=== PATIENT | male | born 1970 | race Caucasian/White ===

== ENCOUNTER 2017-09-19 04:02 | Emergency (ER) | payer OTHER ==
[2017-09-19] MEDS ORDERED: KETOROLAC 30 MG/1 ML SDV IVP ONE (04:12)
[2017-09-19] MEDS ORDERED: NS 1,000 ML IV ONE ×2 (04:12)
[2017-09-19] MEDS ORDERED: ONDANSETRON 4 MG/2 ML VIAL IVP ONE (04:12)
[2017-09-19 05:26] LABS: PLATELET COUNT 193 10^3/uL (150-400)
[2017-09-19] MEDS ORDERED: HYDROmorphONE/DILAUDID 1 MG/ML INJ IVP ONE (05:41)
--- NOTE | 2017-09-19 05:41 | EDPHY ---
H & P Stated Complaint: POS KIDNEY STONE/R FLANK PAIN/URINARY RETENTION Source: Patient Exam Limitations: No limitations - Personal History Current Tetanus Diphtheria and Acellular Pertussis (TDAP): Yes - Medical/Surgical History Hx Asthma: No Hx Chronic Respiratory Disease: No Hx Diabetes: No Hx Cardiac Disease: No Hx Renal Disease: No Hx Cirrhosis: No Hx Alcoholism: No Hx HIV/AIDS: No Hx Splenectomy or Spleen Trauma: No Other PMH: KIDNEY STONES - Social History Smoking Status: Never smoked Time Seen by Provider: 09/19/17 04:12 HPI/ROS: HPI The patient presents with right-sided flank pain that began 6 hr prior to presentation. It came on suddenly. It is dull in nature and intermittent. He rates at a severe. It is associated with several episodes of nonbloody nonbilious emesis. He tried taking ibuprofen and hydromorphone, however he is had vomiting. He has a history of kidney stones, last had renal colic in May of 2017. He had an initial episode of renal colic 6 years ago and was seen by a urologist, he is not sure who. REVIEW OF SYSTEMS Constitutional: No fever, no chills. Eyes: No discharge. ENT: No sore throat. Cardiovascular: No chest pain, no palpitations. Respiratory: No cough, no shortness of breath. Gastrointestinal: No abdominal pain, no vomiting. Genitourinary: No hematuria. Musculoskeletal: No back pain. Skin: No rashes. Neurological: No headache. PMHx: History of renal colic Soc Hx: Recent travel to [place] PHYSICAL General Appearance: Alert, no distress Eyes: Pupils equal and round no pallor or injection ENT, Mouth: Mucous membranes moist Respiratory: There are no retractions, lungs are clear to auscultation Cardiovascular: Regular rate and rhythm Gastrointestinal: Abdomen is soft and non-tender, no masses, bowel sounds normal; right flank tenderness Neurological: A&O, moves all extremities Skin: Warm and dry, no rashes Musculoskeletal: Neck is supple non tender Extremities: symmetrical, full range of motion Psychiatric: Patient is oriented X 3, there is no agitation (KellyiAixa) Constitutional: Initial Vital Signs Temperature (C) 36.3 C 09/19/17 04:08 Heart Rate 54 L 09/19/17 04:08 Respiratory Rate 16 09/19/17 04:08 Blood Pressure 134/80 H 02/24/18 04:08 O2 Sat (%) 96 09/19/17 04:08 O2 Delivery Mode Room Air Allergies/Adverse Reactions: No Known Allergies Allergy (Verified 09/19/17 04:06) Home Medications: Medication Instructions Recorded Hydrocodone/APAP 5/325 [[place] 1 - 2 tab PO Q6H PRN #15 tab 09/19/17 5/325 (*)] Ondansetron Odt [Zofran Odt 4 mg 4 mg PO Q4 PRN #10 tab 09/19/17 (*)] Tamsulosin HCl [Flomax 0.4 MG (*)] 0.4 mg PO DAILY #10 cap 09/19/17 Medical Decision Making Differential Diagnosis: This is a 47-year-old healthy male history of kidney stones who presents with several hours of right-sided flank pain and urgency. On exam, he is generally well-appearing, pain has been intermittent. He has had vomiting. Distal diagnosis includes renal colic, pyelonephritis, doubt AAA given young age. In the emergency department, patient had IV fluids, Toradol, Dilaudid, Zofran with complete resolution of his symptoms. Labs were checked and were unremarkable. UA was pending at change of shift. I suspect he is suffering from renal colic based on his symptomatology. On reassessment he is feeling much better with no pain after receive Dilaudid. Plan to await UA, if there is signs of infection I would treat him with antibiotics. The case will be signed out to Dr. Mattson. (Aixa Forman) Other Provider: Dr. Forman did ask me to check the results of the patient's urine dipstick test. It demonstrated only blood without evidence of any infection. It was leukocyte and nitrate negative. The patient will be discharged per her instructions. (Joe Mattson) - Data Points Laboratory Results: Laboratory Results 09/19/17 05:10 09/19/17 05:10 Medications Given: Discontinued Medications Hydrocodone Bitart/Acetaminophen ([place] 5/325mg Prepack#6) 1 btl TAKEHOME EDNOW ONE Stop: 09/19/17 07:15 Last Admin: 09/19/17 08:46 Dose: 1 btl Hydromorphone HCl (Dilaudid) 0.5 mg IVP EDNOW ONE Stop: 09/19/17 05:42 Last Admin: 09/19/17 05:49 Dose: 0.5 mg Sodium Chloride (Ns) 1,000 mls @ 0 mls/hr IV ONCE ONE; Wide Open PRN Reason: Protocol Stop: 09/19/17 04:13 Last Admin: 09/19/17 04:44 Dose: 1,000 mls Sodium Chloride (Ns) 1,000 mls @ 0 mls/hr IV ONCE ONE; Wide Open PRN Reason: Protocol Stop: 09/19/17 04:13 Last Admin: 09/19/17 04:44 Dose: 1,000 mls Ketorolac Tromethamine (Toradol) 15 mg IVP EDNOW ONE Stop: 09/19/17 04:13 Last Admin: 09/19/17 04:44 Dose: 15 mg Ondansetron HCl (Zofran) 4 mg IVP EDNOW ONE Stop: 09/19/17 04:13 Last Admin: 09/19/17 04:44 Dose: 4 mg Ondansetron HCl (Zofran Odt 4 Mg Prepack#2) 1 btl TAKEHOME EDNOW ONE Stop: 09/19/17 07:15 Last Admin: 09/19/17 08:45 Dose: 1 btl Departure - Departure Disposition: Home, Routine, Self-Care Clinical Impression: Renal colic on right side Condition: Good Instructions: Renal Colic (ED), How to Strain Your Urine (ED) Additional Instructions: Please make sure to drink plenty of water. You should return to the emergency department if your worse in any way. Take ibuprofen 600 mg every 6 hr for pain. If the pain is more severe, you can take the prescription. Take the prescription medications as prescribed. I have given you the information for the urologist whom you can follow up with within the next 1 week if your symptoms continue. Your urine dipstick test demonstrates no evidence of an infection Referrals: Gypsy Horn MD [Medical Doctor] - As per Instructions Prescriptions: Hydrocodone/APAP 5/325 [[place] 5/325 (*)] 1 - 2 tab PO Q6H PRN #15 tab PRN Reason: Pain, Breakthrough Ondansetron Odt [Zofran Odt 4 mg (*)] 4 mg PO Q4 PRN #10 tab PRN Reason: Nausea/Vomiting, Can'T Take Po Tamsulosin HCl [Flomax 0.4 MG (*)] 0.4 mg PO DAILY #10 cap
[2017-09-19] MEDS ORDERED: HYDROmorphONE/DILAUDID 2 MG/ML INJ ONE (05:44)
[2017-09-19] MEDS ORDERED: HYDROCOD/APAP 5/325 PREPACK#6 BTL TAKEHOME ONE (07:14)
[2017-09-19] MEDS ORDERED: ONDANSETRON 4MG PREPACK#2 BTL TAKEHOME ONE (07:14)
[2017-09-19 08:52] VITALS: BP 127/76; PULSE 65; RESP 19; TEMP 97.9; O2SAT 99
== END 2017-09-19 08:50 | disposition home or self-care (01) ==
DX: N23 Unspecified renal colic (principal); E86.9 Volume depletion, unspecified
CPT/HCPCS: 96374; J1170; J1885; J2405

== ENCOUNTER 2017-09-21 21:00 | Observation (INO) | payer OTHER ==
[2017-09-21] MEDS ORDERED: NS 1,000 ML IV ONE ×2 (22:03→22:13)
--- NOTE | 2017-09-21 22:03 | EDPHY ---
H & P Stated Complaint: Dx with kidney stone on Thursday now having chills and sweats [id number] HPI/ROS: HPI CHIEF COMPLAINT: Chills, rigors, diaphoresis, right-sided abdominal pain HISTORY OF PRESENT ILLNESS: Patient very pleasant 39-year-old male he is otherwise healthy does have remote history of kidney stones, was recently seen here on Thursday with right-sided flank pain and had a urinalysis that showed blood was diagnosed with a kidney stone. Was due to follow up with Urology but could not get in today. He presents to the emergency room with ongoing right flank pain as well as chills, rigors and diaphoresis. He has had nausea. He has been taking Zofran and Vicodin. He is afebrile here in the emergency room however he did take Vicodin prior to arrival. His main complaint is chills, rigors, diaphoresis. He is not diaphoretic here. Pain is 3/10 right flank. Past Medical History: history kidney stones. Past Surgical History: Denies recent surgery Social History: Denies drugs alcohol tobacco products. He did have recent travel to [place] Family History: Denies significant family history ROS REVIEW OF SYSTEMS: A comprehensive 10 point review of systems is otherwise negative aside from elements mentioned in the history of present illness. Exam Constitutional otherwise appears well triage nursing summary reviewed, vital signs reviewed, awake/alert. Vital signs noted at triage to be hypotensive 98 systolic blood pressure. Eyes normal conjunctivae and sclera, EOMI, PERRLA. HENT normal inspection, atraumatic, moist mucus membranes, no epistaxis, neck supple/ no meningismus, no raccoon eyes. Respiratory clear to auscultation bilaterally, normal breath sounds, no respiratory distress, no wheezing. Cardiovascular rate normal, regular rhythm, no murmur, no edema, distal pulses normal. Gastrointestinal mild tender palpation right lower quadrant right flank, no rebound, no guarding, normal bowel sounds, no distension, no pulsatile mass. Genitourinary mild right flank pain Musculoskeletal no midline vertebral tenderness, full range of motion, no calf swelling, no tenderness of extremities, no meningismus, good pulses, neurovascularly intact. Skin pink, warm, & dry, no rash, skin atraumatic. Neurologic awake, alert and oriented x 3, AAOx3, moves all 4 extremities equally, motor intact, sensory intact, CN II-XII intact, normal cerebellar, normal vision, normal speech. Psychiatric normal mood/affect. Heme/Lymph/Immune no lymphadenopathy. Differential diagnosis includes but is not limited to and in no particular order : Bacteremia,, sepsis Bowel obstruction, appendicitis, gallbladder disease, diverticulitis, colitis, enteritis, perforated viscus, gastritis, GERD, esophagitis, urinary tract infection, pyelonephritis, kidney stones Medical Decision Making: Plan for this patient IV establishment 2 L normal saline IV fluid bolus, check basic blood work, CT scan abdomen pelvis without contrast the right flank, check lactic acid, obtain blood cultures, re-evaluate. Re-evaluation: CT scan abdomen pelvis without contrast shows a right-sided 6 mm proximal UVJ stone with obstruction. 1209: On re-examination at this time the patient is resting comfortably he was able to get up and provide us urine sample. Blood cultures have been pulled his lactic acid is less than 2. He has remained afebrile here in emergency room. His initial blood pressure was slightly low however it has improved to the 150 systolic. Given his creatinine of 2.4 an obstructing right UPJ stone of 6 mm I do feel the patient needs to be admitted the hospital. The question whether he has an infection is still pending at this time. I have ordered him 1 g of Rocephin. I will additionally consult Urology. The patient agrees for admission. He has remained hemodynamically stable here. Afebrile here. 0148: Urinalysis reviewed shows no evidence of infection. However given the patient's complaint of chills, rigors, and feeling nauseous earlier I have sent a urine culture and given him a g of Rocephin. The patient remains hemodynamically stable. The patient be admitted to the hospitalist service for an obstructing right-sided stone. Creatinine 2.4. Dilaudid for pain control. No Toradol due to renal insufficiency. Additionally will consult Urology. 0207: Spoke with Dr. Haynes, Will plan on seeing patient. Agrees with workup at this time. NPO. Source: Patient - Personal History Current Tetanus/Diphtheria Vaccine: Yes Current Tetanus Diphtheria and Acellular Pertussis (TDAP): Yes - Medical/Surgical History Hx Asthma: No Hx Chronic Respiratory Disease: No Hx Diabetes: No Hx Cardiac Disease: No Hx Renal Disease: No Hx Cirrhosis: No Hx Alcoholism: No Hx HIV/AIDS: No Hx Splenectomy or Spleen Trauma: No Other PMH: KIDNEY STONES - Social History Smoking Status: Never smoked Constitutional: Initial Vital Signs Temperature (C) 36.3 C 09/21/17 21:03 Heart Rate 58 L 09/21/17 21:03 Respiratory Rate 16 09/21/17 21:03 Blood Pressure 96/58 L 09/21/17 21:03 O2 Sat (%) 95 09/21/17 21:03 O2 Delivery Mode Room Air Allergies/Adverse Reactions: No Known Allergies Allergy (Verified 09/21/17 21:06) Home Medications: Medication Instructions Recorded Hydrocodone/APAP 5/325 [[place] 1 - 2 tab PO Q6H PRN #15 tab 09/19/17 5/325 (*)] Ondansetron Odt [Zofran Odt 4 mg 4 mg PO Q4 PRN #10 tab 09/19/17 (*)] Tamsulosin HCl [Flomax 0.4 MG (*)] 0.4 mg PO DAILY #10 cap 09/19/17 Medical Decision Making - Diagnostics Imaging Results: Imaging Impressions Abdomen/Pelvis CT 09/21/17 22:12 Impression: 1. 6 mm proximal right ureteral calculus with associated moderate hydronephrosis. Additional calculus lower pole collecting system, right kidney. Results called to Dr. Jaswinder Jones at 11:00 PM. Attention: This CT examination is specifically designed to evaluate patients who are clinically suspected of having acute obstructive uropathy. This examination does not use radiographic contrast, and as such, provides only a limited evaluation of the abdomen, pelvis and retroperitoneum. If there is further clinical suspicion for pathological conditions other than obstructive uropathy, a complete CT evaluation of the abdomen and pelvis utilizing intravenous, oral, and rectal contrast should be considered. - Data Points Laboratory Results: Laboratory Results 09/21/17 22:23 09/21/17 22:23 09/22/17 09/21/17 09/21/17 00:00 22:23 22:23 WBC RBC Hgb Hct MCV MCH MCHC RDW Plt Count MPV Neut % (Auto) Lymph % (Auto) [place] % (Auto) Eos % (Auto) Baso % (Auto) Nucleat RBC Rel Count Absolute Neuts (auto) Absolute Lymphs (auto) Absolute Monos (auto) Absolute Eos (auto) Absolute Basos (auto) Absolute Nucleated RBC Immature Gran % Immature Gran # PT 14.3 SEC SEC (12.0-15.0) INR 1.09 (0.83-1.16) APTT 25.8 SEC SEC (23.0-38.0) VBG Lactic Acid Sodium 136 mEq/L mEq/L (135-145) Potassium 4.6 mEq/L mEq/L (3.5-5.2) Chloride 101 mEq/L mEq/L (97-110) Carbon Dioxide 27 mEq/l mEq/l (22-31) Anion Gap 8 mEq/L mEq/L (8-16) BUN 21 mg/dL mg/dL (7-23) Creatinine 2.4 mg/dL H D mg/dL (0.7-1.3) Estimated GFR 29 Glucose 121 mg/dL H mg/dL (70-100) Calcium 9.4 mg/dL mg/dL (8.5-10.4) Urine Color YELLOW Urine Appearance CLEAR Urine pH 6.0 (5.0-7.5) Ur Specific [place] 1.010 (1.002-1.030) Urine Protein NEGATIVE (NEGATIVE) Urine Ketones TRACE H (NEGATIVE) Urine Blood NEGATIVE (NEGATIVE) Urine Nitrate NEGATIVE (NEGATIVE) Urine Bilirubin NEGATIVE (NEGATIVE) Urine Urobilinogen NEGATIVE EU EU (0.2-1.0) Ur Leukocyte Esterase NEGATIVE (NEGATIVE) Urine Glucose NEGATIVE (NEGATIVE) 09/21/17 09/21/17 22:23 22:23 WBC 14.38 10^3/uL H 10^3/uL (3.80-9.50) RBC 5.05 10^6/uL 10^6/uL (4.40-6.38) Hgb 14.3 g/dL g/dL (13.7-17.5) Hct 42.5 % % (40.0-51.0) MCV 84.2 fL fL (81.5-99.8) MCH 28.3 pg pg (27.9-34.1) MCHC 33.6 g/dL g/dL (32.4-36.7) RDW 12.0 % % (11.5-15.2) Plt Count 181 10^3/uL 10^3/uL (150-400) MPV 8.7 fL fL (8.7-11.7) Neut % (Auto) 84.0 % H % (39.3-74.2) Lymph % (Auto) 7.4 % L % (15.0-45.0) [place] % (Auto) 7.6 % % (4.5-13.0) Eos % (Auto) 0.4 % L % (0.6-7.6) Baso % (Auto) 0.2 % L % (0.3-1.7) Nucleat RBC Rel Count 0.0 % % (0.0-0.2) Absolute Neuts (auto) 12.07 10^3/uL H 10^3/uL (1.70-6.50) Absolute Lymphs (auto) 1.06 10^3/uL 10^3/uL (1.00-3.00) Absolute Monos (auto) 1.10 10^3/uL H 10^3/uL (0.30-0.80) Absolute Eos (auto) 0.06 10^3/uL 10^3/uL (0.03-0.40) Absolute Basos (auto) 0.03 10^3/uL 10^3/uL (0.02-0.10) Absolute Nucleated RBC 0.00 10^3/uL 10^3/uL (0-0.01) Immature Gran % 0.4 % % (0.0-1.1) Immature Gran # 0.06 10^3/uL 10^3/uL (0.00-0.10) PT INR APTT VBG Lactic Acid 1.2 mmol/L mmol/L (0.7-2.1) Sodium Potassium Chloride Carbon Dioxide Anion Gap BUN Creatinine Estimated GFR Glucose Calcium Urine Color Urine Appearance Urine pH Ur Specific [place] Urine Protein Urine Ketones Urine Blood Urine Nitrate Urine Bilirubin Urine Urobilinogen Ur Leukocyte Esterase Urine Glucose Medications Given: Discontinued Medications Hydromorphone HCl (Dilaudid) 0.5 mg IVP EDNOW ONE Stop: 09/22/17 01:33 Last Admin: 09/22/17 01:37 Dose: 0.5 mg Sodium Chloride (Ns) 1,000 mls @ 0 mls/hr IV EDNOW ONE; Wide Open PRN Reason: Protocol Stop: 09/21/17 22:04 Last Admin: 09/21/17 22:20 Dose: 1,000 mls Sodium Chloride (Ns) 1,000 mls @ 0 mls/hr IV ONCE ONE PRN Reason: Wide Open Stop: 09/21/17 22:14 Last Admin: 09/21/17 23:19 Dose: 1,000 mls Ceftriaxone Sodium/Dextrose (Rocephin 1 Gm (Premix)) 50 mls @ 100 mls/hr IV EDNOW ONE PRN Reason: Protocol Stop: 09/22/17 00:37 Last Admin: 09/22/17 01:12 Dose: 50 mls Departure - Departure Disposition: [facility] Acute Clinical Impression: Urinary tract obstruction by kidney stone Condition: Fair
[2017-09-21 22:37] LABS: PLATELET COUNT 181 10^3/uL (150-400)
[2017-09-21 22:43] LABS: INR 1.09 (0.83-1.16); PROTIME(PATIENT) 14.3 SEC (12.0-15.0)
[2017-09-22] MEDS ORDERED: HYDROmorphONE/DILAUDID 1 MG/ML INJ ONE (01:19)
[2017-09-22] MEDS ORDERED: HYDROmorphONE/DILAUDID 1 MG/ML INJ IVP ONE (01:32)
[2017-09-22] MEDS ORDERED: HYDROCODONE/APAP 5/325 TAB PO PRN ×2 (02:03→16:31)
[2017-09-22] MEDS ORDERED: HYDROmorphONE/DILAUDID 1 MG/ML INJ IVP PRN (02:03)
[2017-09-22] MEDS ORDERED: ACETAMINOPHEN 325 MG TAB PO PRN (02:03)
[2017-09-22] MEDS ORDERED: LORazepam 2 MG/ML INJ IVP PRN (02:03)
[2017-09-22] MEDS ORDERED: ONDANSETRON 4 MG/2 ML VIAL IVP PRN ×2 (02:03→16:31)
[2017-09-22] MEDS ORDERED: PROMETHAZINE HCL 25 MG/ML INJ IVP PRN ×2 (02:03→16:31)
[2017-09-22] MEDS: HYDROmorphONE/DILAUDID 2 MG/ML INJ IVP PRN ×3 (03:15→12:07)
--- NOTE | 2017-09-22 03:37 | GHP ---
[f rep st] HISTORY AND PHYSICAL DATE OF ADMISSION: 09/22/2017 SOURCE: Patient provides history, appears reliable. EMR was reviewed and case discussed with ED pro vider. CHIEF COMPLAINT: Right abdominal flank pain. HISTORY OF PRESENT ILLNESS: This is a very pleasant 47-year-old gentleman with past medical history significant for kidney stone diagnosed just a few days ago, who presents to the emergency department today returning with complaints of rigors, diaphoresis and worsening abdominal pain with nausea and v omiting. Patient reports he started to have symptoms approximately 3-4 days ago when he developed th e abdominal pain. He has subsequently developed rigors and complaints of chills. He denies any know n fevers. The patient has had several episodes of nausea and vomiting that initial day of symptoms, which have subsequently resolved. He did note a little bit of blood tinging. Denies any melena, hem atochezia. He denies any dysuria or hematuria. He reports his urine has been darker. The patient h as had some constipation at this time. He also received 3 L of IV fluid in the emergency department before he was able to void for sample. The patient underwent CT scan in the ED, which did show a 6 m m obstructing right stone at the UPJ. REVIEW OF SYSTEMS: GENERAL: Patient reports subjective chills, rigors and diaphoresis. SKIN: Sherie ent denies any rashes or sores. ENT: No congestion or sore throat. EYES: Patient does report an ep isode of dizziness with associated bilateral loss of vision during episodes of severe rigors. He den ies any syncope. CV: The patient denies any chest pain or palpitations. RESPIRATORY: Patient with out any shortness of breath or cough. GI: See HPI. : See HPI. NEURO: Patient reports episode o f dizziness x1, now resolved. He has had a low-grade mild headache ongoing in the last several days. Denies any numbness or tingling anywhere. PSYCH: Patient denies any anxiety or depression. The rem ainder of review of systems negative, except as noted above. ALLERGIES: No known drug allergies. HOME MEDICATIONS: Tamsulosin, Zofran ODT, [place]. PAST MEDICAL HISTORY: Significant for kidney stones. PAST SURGICAL HISTORY: Patient denies. FAMILY HISTORY: Negative for kidney stones, renal disease, hypertension, diabetes. SOCIAL HISTORY: Patient is , lives with family. Does not smoke. He does drink approximately 2 times weekly. He also uses rare marijuana, possibly once per month. CODE STATUS: Full. PHYSICAL EXAMINATION: VITAL SIGNS: Upon arrival to the emergency department, blood pressure 96/58, heart rate 58, respiratory rate 16, O2 saturation 95% on room air with temperature 36.3. Current vit als available, blood pressure 122/83, heart rate is 79, respiratory rate 16, O2 saturation is 96% on room air with a temperature of 36.9. GENERAL: No acute distress. The patient appears acutely ill, but nontoxic. He does appear uncomfortable with movement, but he is pleasant and cooperative. HEAD: Normocephalic, atraumatic. EYES: Extraocular muscles grossly intact. Pupils equal, round, decrea sed reactivity to light bilaterally, but symmetric. No scleral icterus or conjunctival injection. E NT: Mucous membranes appear moist. No oropharyngeal erythema or exudates. Dentition is intact. NE CK: Supple. Trachea midline. CV: Regular rate and rhythm. No murmurs, rubs, or gallops appreciat ed. RESPIRATORY: Lungs are clear to auscultation bilaterally. No wheezes, rales, or rhonchi apprec iated. ABDOMEN: Positive bowel sounds. Soft. Patient does complain of some tenderness to palpatio n. No rebound or guarding appreciated. : No suprapubic tenderness to palpation. No Burdick cathet er in place. EXTREMITIES: Patient without any cyanosis, clubbing, or edema. Patient with 2+ pedal pulses. NEURO: Grossly nonfocal. No facial drooping. Cranial nerves 2-12 are intact symmetric karla aterally. Patient is awake, alert, and oriented x4. PSYCH: Thought process, content and all questi ons appear reliable. Patient is cooperative and pleasant. LABORATORY STUDIES: WBC 14.38, H and H is 14.3 and 42.5, MCV of 84.2, platelet count is 181, neutrop hil 84.0%. PT is 14.3, INR 1.09, PTT is 25.8. Lactic acid 1.2. Sodium is 136, potassium 4.6, chloride 101, CO2 27, anion gap 8, BUN 20, creatinine 1, creatinine 2.4 , GFR of 29, glucose 121, calcium 9.4. UA specific gravity of 1.010 with a pH of 6.0, trace ketones, otherwise negative. CT abdomen and pelvis: Image report reviewed myself showing a 6 mm right proximal ureteral calculus with moderate hydronephrosis. Additional calculus lower pole collecting system in the right kidney w ith a 6 mm calculus present in the proximal right UPJ with associated moderate hydronephrosis, perine phric urinary extravasation. ASSESSMENT AND PLAN: Pleasant 47-year-old gentleman with history of kidney stone, who presents to [facility] emergency department with rigors and worsening abdominal pain. 1. Obstructing nephrolithiasis with hydronephrosis. The patient will be made n.p.o. Dr. Dallas bell s consulted from the emergency department and will plan to see the patient this morning for intervent ion. 2. Acute kidney injury, likely related to prerenal and obstructive processes. Patient is status pos t 3 L IV fluid before he was able to make any urine. We will continue with intravenous fluid support on the medical floor. Repeat renal function panel in the morning. 3. Leukocytosis secondary to obstructive process, possible infected stone. However, urinalysis is n egative for any evidence of infectious process. He did receive Rocephin and will await urine culture and blood cultures. 4. Hyperglycemia, mildly elevated and nonfasting state. We will plan to repeat a BMP in the morning as patient will be fasting. 5. Acute pain. The patient will have available IV Dilaudid and Ativan at this time p.r.n. 6. Fluid, electrolyte, nutrition. Patient will receive intravenous fluids. Electrolyte replacement as noted above. Diet is n.p.o. pending Urology evaluation. 7. Prophylaxis. Sequential compression devices, holding anticoagulation, anticipating a procedure. 8. Cor status is full. 9. Disposition. Patient has been admitted to observation status at this time on the medical floor p ending further evaluation and findings from Urology services. Anticipate patient may possibly even d ischarge later in the evening. /[id number]/MODL
[2017-09-22 04:58] LABS: PLATELET COUNT 173 10^3/uL (150-400)
--- NOTE | 2017-09-22 08:20 | SOAPPROG ---
SOAP Progress Note Assessment/Plan: Assessment: Urinary tract obstruction by kidney stone Acute right side and consider intervention if pt does not pass. Options discussed Plan: hydrate, pain control, consider ureteroscopy for stone manipulation 09/22/17 08:18 Subjective: pain Objective: Vital Signs Temp Pulse Resp BP Pulse Ox 36.9 C 71 16 129/76 H 97 09/22/17 07:33 09/22/17 07:33 09/22/17 07:33 09/22/17 07:33 09/22/17 07:33 Laboratory Results 09/22/17 04:10 09/22/17 04:10 09/21/17 09/22/17 09/23/17 05:59 05:59 05:59 Intake Total 2450 Output Total 700 Balance 1750 PT 14.3 SEC (12.0-15.0) 09/21/17 22:23 INR 1.09 (0.83-1.16) 09/21/17 22:23 Physical Exam - Physical Exam General Appearance: alert Respiratory: No respiratory distress Cardiac/Chest: regular rate, rhythm Abdomen: soft Back: CVA tenderness Neuro/Psych: alert, oriented x 3 ICD10 Worksheet Patient Problems: Problems Problem Status Onset Urinary tract obstruction by kidney stone Acute
--- NOTE | 2017-09-22 10:43 | ASMTCMCOM ---
CM Note CM Note Notes: Pt to OR today for kidney stones. Pt , anticipate will d/c when medically stable. No therapies ordered at this time. No CM d/c needs identified at this time. CM available for changes/needs. Date Signed: 09/22/2017 10:42 AM Electronically Signed By:SONAM Daly
--- NOTE | 2017-09-22 11:07 | HOSPPROG ---
Hospitalist Progress Note Assessment/Plan: Patient is a 47-year-old male with a history of a kidney stone diagnosed a few days ago. He returned to the emergency room with complaints of rigors, diaphoresis and worsening abdominal pain with associated nausea and vomiting. It is noted that he has 6 mm obstructing right stone at the UPJ. Today is my 1st encounter with the patient. Chart reviewed. * obstructing nephrolithiasis with associated hydronephrosis -appreciate Urology seeing him * acute kidney injury -repeat labs in a.m. * leukocytosis -UA does not show any infectious etiology, will follow closely -he received a dose of Rocephin in the ER. -repeat labs in a.m. * hyperglycemia -suspect mainly stress induced * pain due to the above -cont pain medications *Plan: start iv fluids, >30 minutes meeting w the patient and his parents, will get repeat labs to be sure he is improving as far as renal function and leukocytosis. Hank and his parents had multiple questions about procedure, labs , etc. Subjective: Hank is having ongoing flank pain. Objective: Vital Signs Temp Pulse Resp BP Pulse Ox 36.9 C 71 16 129/76 H 97 09/22/17 07:33 09/22/17 07:33 09/22/17 07:33 09/22/17 07:33 09/22/17 07:33 Laboratory Results 09/22/17 04:10 09/22/17 04:10 09/21/17 09/22/17 09/23/17 05:59 05:59 05:59 Intake Total 2450 Output Total 700 250 Balance 1750 -250 PT 14.3 SEC (12.0-15.0) 09/21/17 22:23 INR 1.09 (0.83-1.16) 09/21/17 22:23 - Physical Exam Constitutional: uncomfortable Eyes: PERRL Ears, Nose, Mouth, Throat: hearing normal Cardiovascular: regular rate and rhythym Respiratory: no respiratory distress Gastrointestinal: normoactive bowel sounds Skin: warm Musculoskeletal: full muscle strength Neurologic: AAOx3 Psychiatric: interacting appropriately ICD10 Worksheet Patient Problems: Problems Problem Status Onset Urinary tract obstruction by kidney stone Acute
[2017-09-22] MEDS: NS 1,000 ML IV SCH ×2 (11:48→18:42)
[2017-09-22] MEDS ORDERED: LR 1,000 ML IV ONE (16:08)
[2017-09-22] MEDS ORDERED: IOPAMIDOL (ISOVUE-M 300) 15 ML VIAL ONE (16:10)
[2017-09-22] MEDS ORDERED: LIDOCAINE 2% JELLY 20 ML (UROJECT) ONE (16:11)
[2017-09-22] MEDS ORDERED: ACETAMINOPHEN 500 MG TAB PO PRN (16:31)
[2017-09-22] MEDS ORDERED: MIDAZOLAM 2 MG/2 ML VIAL IVP ONE (16:31)
[2017-09-22] MEDS ORDERED: MEPERIDINE 25 MG/ML SYR IVP PRN (16:31)
[2017-09-22] MEDS ORDERED: LR 500 ML IV PRN (16:31)
[2017-09-22] MEDS ORDERED: NALOXONE HCL 0.4 MG/ML INJ IVP PRN (16:31)
[2017-09-22] MEDS ORDERED: fentaNYL 100 MCG/2 ML INJ IVP PRN (16:31)
--- NOTE | 2017-09-22 16:31 | PDANEPAE ---
ANE Past Medical History - Pulmonary History Hx Oxygen in Use at Home: No Hx Sleep Apnea: No Sleep Apnea Screening Result - Last Documented: Negative - Endocrine History Hx Diabetes: No ANE Review of Systems Review of Systems: - Exercise capacity METS (RN): 6 METS ANE Patient History - Allergies Allergies/Adverse Reactions: No Known Allergies Allergy (Verified 09/21/17 21:06) - Home Medications Home Medications: Aspirin [Aspirin 81mg (*)] 81 mg PO DAILY 09/22/17 [Last Taken 09/19/17] Zolpidem Tartrate [Ambien 5MG (*)] 5 mg PO HS PRN 09/22/17 [Last Taken 09/18/17] - NPO status NPO Since - Liquids (Date): 09/22/17 NPO Since - Liquids (Time): 03:00 NPO Since - Solids (Date): 09/22/17 NPO Since - Solids (Time): 03:00 - Anes Hx Anes Hx: no prior problems - Smoking Hx Smoking Status: Never smoked ANE Labs/Vital Signs - Labs Result Diagrams: 09/22/17 04:10 09/22/17 04:10 - Vital Signs Blood Pressure: 143/93 Heart Rate: 82 Respiratory Rate: 18 O2 Sat (%): 95 Height: 185.42 cm Weight: 84.056 kg ANE Physical Exam - Airway Neck exam: FROM Mallampati Score: Class 1 Mouth exam: normal dental/mouth exam - Pulmonary Pulmonary: no respiratory distress, no rales or rhonchi, clear to auscultation - Cardiovascular Cardiovascular: regular rate and rhythym, no murmur, rub, or gallop - ASA Status ASA Status: I ANE Anesthesia Plan Anesthesia Plan: GA w LMA
[2017-09-22] MEDS ORDERED: fentaNYL 100 MCG/2 ML INJ ONE (16:43)
[2017-09-22] MEDS ORDERED: PROPOFOL 200 MG/20 ML VIAL ONE (16:43)
[2017-09-22] MEDS ORDERED: DEXAMETHASONE 4 MG/ML VIAL ONE ×2 (16:44)
[2017-09-22] MEDS ORDERED: LIDOCAINE 2% JELLY 5 ML TUBE ONE (16:44)
[2017-09-22] MEDS ORDERED: LIDOCAINE 2% 5 ML SDV ONE (16:44)
[2017-09-22] MEDS ORDERED: ONDANSETRON 4 MG/2 ML VIAL ONE (16:44)
[2017-09-22] MEDS ORDERED: ceFAZolin 2 GM/SWFI 20 ML SYR IVP ONE (16:47)
[2017-09-22] MEDS ORDERED: ceFAZolin 2 GM/SWFI 2 GM/20 ML SYR IVP ONE (16:48)
--- NOTE | 2017-09-22 16:48 | PDHPUP ---
History & Physical Update H&P update statement: This history and physical update is based on an assessment of the patient which was completed after admission or registration (within 24 hours), but prior to the surgery/procedure. H&P update: H&P reviewed & patient examined, no change in patient's condition since H&P completed
--- NOTE | 2017-09-22 17:51 | POSTANESTH ---
Post Anesthetic Evaluation Cardiovascular Status: Normal, Stable, Similar to Pre-Op Cond Respiratory Status: Normal, Stable, Similar to Pre-op Cond. Level of Consciousness/Mental Status: Can Participate in Eval, Alert and Oriented Pain Control: Adequate, Prn Tx Ordered Nausea/Vomiting Control: Adequate, Prn Tx Ordered Complications Possibly Related to Anesthesia: None Noted
--- NOTE | 2017-09-22 17:52 | POSTOPPROG ---
Post Op Note Date of Operation: 09/22/17 Surgeon: Hank Reyes Anesthesiologist: Camila Anesthesia: GET(General Endotracheal) Pre-op Diagnosis: ureterolithiasis Post-op Diagnosis: same Indication: same Procedure: ureteroscopy, stone Findings: impacted stone Inf/Abcess present in the surg proc area at time of surgery?: No EBL: Minimal Complications: none, could not access stone so stent placed Drains: Other (stent) Specimen(s): none--dictated
[2017-09-22] MEDS ORDERED: PHENAZOPYRIDINE HCL 200 MG TAB PO ONE (17:54)
--- NOTE | 2017-09-22 19:36 | GOP ---
[f rep st] OPERATIVE REPORT DATE OF OPERATION: 09/22/2017 SURGEON: Hank Reyes MD PREOPERATIVE DIAGNOSIS: Right ureteral calculus with hydronephrosis. POSTOPERATIVE DIAGNOSIS: Right ureteral calculus with hydronephrosis. PROCEDURE PERFORMED: Cystoscopy, retrograde ureteral pyelogram, ureteroscopy, stent placement, attempted manipulation of stone. FINDINGS: impacted stone DESCRIPTION OF PROCEDURE: Gentleman underwent general anesthesia and after appropriate time-out, being prepped and draped in normal sterile fashion, cystoscopy was performed. Retrograde ureteral pyelogram revealed the mid ureteral calculus with obstruction and on CAT scan he had some extravasation and hydronephrosis and his creatinine has been elevated. After placing a guidewire up beyond the stone, the ureteral access sheath was passed up to just below the stone, could not pass it beyond, so at that point, passed a flexible ureteroscope up to where the stone was and it was densely impacted. I tried to dilate it further with the internal luminal ureteral access sheath inserted, and could pass that beyond the stone but could not get the scope up to the stone. So, in attempt not to produce any ureteral damage and the urine coming from the kidney had was somewhat cloudy and dark, I elected to place a 4.7 multi -length stent that curled in the renal pelvis, curled in the bladder, and leave the stent in and have him come back next week for attempted stone removal at that time. No specimen was obtained. Complications none. I will talk to his family about the findings and reschedule this procedure for next week in attempt to get him stone-free at that time. /[id number]/MODL MTDD
[2017-09-23] MEDS: NS 1,000 ML IV SCH (04:29)
[2017-09-23 04:39] VITALS: RESP 18; TEMP 97.6
[2017-09-23 04:53] LABS: PLATELET COUNT 181 10^3/uL (150-400)
[2017-09-23 08:58] VITALS: BP 153/99; PULSE 78; O2SAT 94
[2017-09-23] MEDS ORDERED: TAMSULOSIN HCL 0.4 MG CAP PO SCH (09:00)
--- NOTE | 2017-09-23 09:47 | HOSPPROG ---
Hospitalist Progress Note Assessment/Plan: Patient is a 47-year-old male with a history of a kidney stone diagnosed a few days ago. He returned to the emergency room with complaints of rigors, diaphoresis and worsening abdominal pain with associated nausea and vomiting. It is noted that he has 6 mm obstructing right stone at the UPJ. * obstructing nephrolithiasis with associated hydronephrosis -s/p stent placement * acute kidney injury -better, will have him get this rechecked end of week * leukocytosis -UA does not show any infectious etiology, will follow closely -he received a dose of Rocephin in the ER. -improved * hyperglycemia -suspect mainly stress induced * pain due to the above -cont pain medications *Plan: dc today after he voids Subjective: Hank is feeling much better today, no complaints. Objective: Vital Signs Temp Pulse Resp BP Pulse Ox 36.4 C 78 18 153/99 H 94 09/23/17 08:00 09/23/17 08:00 09/23/17 08:00 09/23/17 08:00 09/23/17 08:00 Laboratory Results 09/23/17 04:28 09/23/17 04:28 09/22/17 09/23/17 09/24/17 05:59 05:59 05:59 Intake Total 2450 720 1294 Output Total 700 2250 250 Balance 1750 -1530 1044 PT 14.3 SEC (12.0-15.0) 09/21/17 22:23 INR 1.09 (0.83-1.16) 09/21/17 22:23 - Physical Exam Constitutional: no apparent distress, appears nourished, not in pain Eyes: PERRL Ears, Nose, Mouth, Throat: hearing normal Cardiovascular: regular rate and rhythym Respiratory: no respiratory distress Gastrointestinal: soft, non-tender abdomen Skin: warm Musculoskeletal: full muscle strength Neurologic: AAOx3 Psychiatric: interacting appropriately ICD10 Worksheet Patient Problems: Problems Problem Status Onset Urinary tract obstruction by kidney stone Acute
[2017-09-23] MEDS ORDERED: LACTULOSE 20 GM/30 ML UDCUP PO PRN (10:26)
[2017-09-23] MEDS ORDERED: POLYETHYLENE GLYCOL 3350 17 GM PKT PO PRN (10:26)
[2017-09-23] MEDS ORDERED: BISACODYL 10 MG SUPP PR PRN (10:26)
--- NOTE | 2017-09-23 11:39 | GDS ---
[f rep st] DISCHARGE SUMMARY DISCHARGE DIAGNOSIS: 1. Obstructing nephrolithiasis with associated hydronephrosis. 2. Acute kidney injury. 3. Leukocytosis. 4. Hyperglycemia. 5. Pain due to the nephrolithiasis. CONSULTATION: Dr. Easton Reyes. HISTORY: Briefly, Mr. Pereira is a very nice 47-year-old male without any significant past medical history. He was diagnosed with a kidney stone a few days ago and returned to the emergency department with rigors, diaphoresis, and worsening abdominal pain with associated nausea and vomiting. He had a CT scan in the ED which showed a 6 mm obstructing right stone at the UPJ. He was seen and evaluated by Dr. Reyes and had a ureteroscope with laser. It was noted that he had an impacted stone and a stent was placed in. He had no complications from the procedure. He will reschedule the procedure for next week in an attempt to get him stone-free at that time. The patient is feeling markedly better and will follow up with Dr. Reyes in the outpatient setting. HOSPITAL COURSE: 1. Obstructing nephrolithiasis with associated hydronephrosis. He is status post stent placement. The stone is still present. He will follow up with Dr. Reyes next week for a repeat cystoscopy. 2. Acute kidney injury. His creatinine was quite elevated on admission. This has improved but still elevated at 1.5. Will have him get this rechecked within a week to make sure this is improving. 3. Leukocytosis. This is improved. He had a urinalysis performed which did not show any infectious etiology. Urine culture shows no growth. Blood culture showed no growth. 4. Hyperglycemia. This is likely stress induced. 5. Pain. He will get a prescription for [place] at discharge. DISCHARGE CONDITION: Stable. Blood pressure is 120/75, heart rate is 62, respiratory rate is 18, O2 saturations on room air are 93%. MEDICATIONS AT DISCHARGE: Please see the EMR. DISCHARGE INSTRUCTIONS: 1. To follow up with his primary care provider because he has had some elevated blood pressures during his stay. 2. Stay well hydrated. 3. Dr. Reyes's office will call him to get a repeat ureteroscopy next week. If he does not hear from them, to call his office. 4. To avoid NSAIDs in the setting of an elevated creatinine. 5. Repeat chemistry in 1 week with his PCP. 6. If he develops fever, chills, worsening pain, return to the ER. /[id number]/MODL MTDD
[2017-09-23] MEDS ORDERED: SENNOSIDES/DOCUSATE SODIUM TAB PO SCH (21:00)
== END 2017-09-23 12:35 | disposition home or self-care (01) ==
LOC: INTOOBSV 09-22 00:09 → F3N 09-22 02:41 → F1N 09-22 16:26
PROVIDERS: ADMIT Family Medicine; ATTEND Internal Medicine
PROC: BT16YZZ Fluoroscopy of Right Ureter using Other Contrast (ICD-10-PCS; 2017-09-22)
PROC: 0T768DZ Dilation of Right Ureter with Intraluminal Device, Via Natural or Artificial Opening Endoscopic (ICD-10-PCS; principal; 2017-09-22 16:30)
DX: N13.2 Hydronephrosis with renal and ureteral calculous obstruction (principal); N17.9 Acute kidney failure, unspecified; D72.829 Elevated white blood cell count, unspecified; R73.9 Hyperglycemia, unspecified; Z87.442 Personal history of urinary calculi; E86.9 Volume depletion, unspecified
CPT/HCPCS: 52332; 74176; 76001; 96361; 96365; 96375; 99285; C1758; C1769; C1894; G0378; C2625; J0690; J0696; J1100; J1170; J2060; J2250; J2405; J2704; J3010; Q9967